=== PATIENT | male | born 1965 | race Hispanic/Latino ===

== ENCOUNTER 2022-05-03 21:20 | Inpatient (IN) | payer MEDICAID, MEDICARE, OTHER ==
[~2022-05-03] VITALS: Ht 182.9 cm; Wt 120.0 kg
[2022-05-03 21:51] LABS: BASOPHILS % (AUTO) 1.6 % (0.0-5.0); EOSINOPHILS % (AUTO) 5.3 % (0.0-8.0); HEMATOCRIT 30.2 % (42-54); LYMPHOCYTES % (AUTO) 16.1 % (21.0-51.0); MEAN CORPUSCULAR HEMOGLOBIN 33.6 pg (27.0-33.0); MEAN CORPUSCULAR HGB CONC 32.8 g/dL (32.0-36.0); MEAN CORPUSCULAR VOLUME 102.4 fL (79-99); MONOCYTES % (AUTO) 10.6 % (3.0-13.0); NEUTROPHILS % (AUTO) 66.1 % (40.0-77.0); PLATELET COUNT (AUTO) 164 K/uL (130-400); RED BLOOD CELL COUNT(AUTO) 2.95 MIL/uL (4.50-6.20); RED CELL DISTRIBUTION WIDTH 15.6 % (11.0-15.5); WHITE BLOOD COUNT (AUTO) 6.8 K/uL (4.8-10.8)
[2022-05-03 22:07] LABS: ALBUMIN 2.9 g/dL (3.5-5.0); POTASSIUM 5.5 mmol/L (3.5-5.1); TOTAL PROTEIN, SERUM 8.4 g/dL (6.0-8.3)
[2022-05-03 22:13] LABS: B-TYPE NATRIURETIC PEPTIDE > 5000 pg/mL (0-100)
[2022-05-03 22:14] LABS: CREATININE 13.7 mg/dL (0.5-1.5)
[2022-05-03] MEDS ORDERED: LACTULOSE 20 GM/30 ML UDCUP PO PRN (23:30)
[2022-05-03] MEDS ORDERED: GUAIFENESIN-DM 200/20 MG 10 ML PO PRN (23:30)
[2022-05-03] MEDS ORDERED: MAG/ALUM/SIMETH 30 ML UDCUP PO PRN (23:30)
[2022-05-03] MEDS ORDERED: NITROGLYCERIN 0.4 MG SL TAB SL PRN (23:30)
[2022-05-03] MEDS ORDERED: ONDANSETRON 4MG INJ IV PRN (23:30)
[2022-05-03] MEDS ORDERED: HYDRALAZINE 20MG/ML VIAL IV PRN (23:30)
[2022-05-03] MEDS ORDERED: MORPHINE 4 MG SYG IV PRN (23:30)
[2022-05-03] MEDS ORDERED: DiphenhydrAMINE HCL 50 MG/ML VIAL IV PRN (23:30)
[2022-05-03] MEDS ORDERED: ACETAMINOPHEN 325 MG TAB PO PRN (23:30)
[2022-05-03 23:48] LABS: INR 1.15 (0.85-1.15); PROTHROMBIN TIME 12.4 SEC (9.6-11.6)
[2022-05-04] VITALS (17 sets, daily range): BP systolic 128–169; BP diastolic 69–90
[2022-05-04] MEDS: FUROSEMIDE 40MG VIAL IV SCH ×3 (00:04→22:05)
[2022-05-04] MEDS ORDERED: NA ZIRCON CYCLOSIL(LOKELMA 10GM) PO ONE (00:30)
[2022-05-04] MEDS: ALBUTEROL 0.083% 2.5 MG/3 ML INH IH PRN ×5 (00:42→23:39)
[2022-05-04] MEDS: DIPHENHYDRAMINE HCL 25 MG CAPSULE PO PRN ×2 (04:53→19:22)
[2022-05-04 05:59] LABS: HEMATOCRIT 29.1 % (42-54); MEAN CORPUSCULAR HEMOGLOBIN 33.8 pg (27.0-33.0); MEAN CORPUSCULAR HGB CONC 33.7 g/dL (32.0-36.0); MEAN CORPUSCULAR VOLUME 100.3 fL (79-99); RED BLOOD CELL COUNT(AUTO) 2.9 MIL/uL (4.50-6.20); RED CELL DISTRIBUTION WIDTH 15.5 % (11.0-15.5); WHITE BLOOD COUNT (AUTO) 7.9 K/uL (4.8-10.8)
[2022-05-04 06:10] LABS: POTASSIUM 5.4 mmol/L (3.5-5.1)
[2022-05-04] MEDS: HYDROCODONE/ACETAMINOPHEN 5/325 MG TAB PO PRN (06:40)
[2022-05-04] MEDS: FAMOTIDINE 20MG VIAL IV SCH ×2 (08:21→19:22)
[2022-05-04] MEDS: LIDOCAINE 2%-EPI 1:200,000 20 ML VIAL IJ SCH (10:30)
[2022-05-04] MEDS: ACETAMINOPHEN 325 MG TAB PO PRN (19:25)
[2022-05-04 20:27] LABS: HEPATITIS B SURFACE ANTIGEN Non-Reactive (Nonreactive)
[2022-05-04] MEDS ORDERED: TRAZODONE HCL 50 MG TAB PO SCH (22:00)
[2022-05-05] VITALS (27 sets, daily range): BP systolic 130–172; BP diastolic 63–103
[2022-05-05 04:11] LABS: BASOPHILS % (AUTO) 1.3 % (0.0-5.0); EOSINOPHILS % (AUTO) 5.5 % (0.0-8.0); HEMATOCRIT 29.7 % (42-54); LYMPHOCYTES % (AUTO) 17.6 % (21.0-51.0); MEAN CORPUSCULAR HEMOGLOBIN 33.1 pg (27.0-33.0); MEAN CORPUSCULAR VOLUME 100.3 fL (79-99); MONOCYTES % (AUTO) 11.9 % (3.0-13.0); NEUTROPHILS % (AUTO) 63.4 % (40.0-77.0); PLATELET COUNT (AUTO) 142 K/uL (130-400); RED BLOOD CELL COUNT(AUTO) 2.96 MIL/uL (4.50-6.20); RED CELL DISTRIBUTION WIDTH 15.4 % (11.0-15.5)
[2022-05-05 04:27] LABS: PHOSPHORUS 6.8 mg/dL (2.5-4.9); POTASSIUM 4.8 mmol/L (3.5-5.1)
[2022-05-05 04:55] LABS: CREATININE 11.6 mg/dL (0.5-1.5)
[2022-05-05] MEDS: LIDOCAINE 2%-EPI 1:200,000 20 ML VIAL IJ SCH (09:59)
[2022-05-05] MEDS: FAMOTIDINE 20MG VIAL IV SCH ×2 (09:59→20:47)
[2022-05-05] MEDS ORDERED: CETIRIZINE HCL 5 MG TABLET PO SCH (12:00)
[2022-05-05] MEDS: FUROSEMIDE 40MG VIAL IV SCH (12:03)
[2022-05-05] MEDS: HYDROCODONE/ACETAMINOPHEN 5/325 MG TAB PO PRN (13:08)
[2022-05-05] MEDS ORDERED: FURO40TA7 PO (13:11)
[2022-05-05] MEDS: DIPHENHYDRAMINE HCL 25 MG CAPSULE PO PRN (13:50)
[2022-05-05] MEDS: ACETAMINOPHEN 325 MG TAB PO PRN (13:51)
[2022-05-05 14:22] LABS: APPEARANCE BODY FLUID TURBID (CLEAR); BODY FLUID WBC 240 /cu. mm.; COLOR,BODY FLUID RED (LT YELLOW); SPECIMENTYPE,BODY FLUID PLEURAL; TOTAL VOLUME,BODY FLUID 700 mL
[2022-05-05 14:23] LABS: BODY FLUID RBC 16300 /cu. mm.
[2022-05-05 14:29] LABS: BF EOSINOPHIL 2 %; BF LYMPHOCYTE 4 %; BF MESOTHELIAL 93 %
[2022-05-05] MEDS ORDERED: EPOETIN ALFA-EPBX (NON-ESRD) 10,000 UNIT/ML VIAL SQ SCH (21:00)
[2022-05-06] VITALS (7 sets, daily range): BP systolic 149–172; BP diastolic 71–96
[2022-05-06] MEDS: FUROSEMIDE 40MG VIAL IV SCH ×3 (00:23→23:53)
[2022-05-06] MEDS ORDERED: LISINOPRIL 20 MG TABLET PO SCH (09:00)
[2022-05-06] MEDS: FAMOTIDINE 20MG VIAL IV SCH ×2 (10:05→19:58)
[2022-05-06] MEDS: CETIRIZINE HCL 5 MG TABLET PO SCH (10:06)
[2022-05-06] MEDS: SEVELAMER HCL 800 MG TABLET PO SCH (12:12)
[2022-05-06] MEDS: HYDROCODONE/ACETAMINOPHEN 5/325 MG TAB PO PRN (14:10)
[2022-05-06] MEDS: ACETAMINOPHEN 325 MG TAB PO PRN (14:11)
[2022-05-07] VITALS (17 sets, daily range): BP systolic 159–186; BP diastolic 82–98
[2022-05-07] MEDS: CETIRIZINE HCL 5 MG TABLET PO SCH (09:18)
[2022-05-07] MEDS: SEVELAMER HCL 800 MG TABLET PO SCH ×2 (09:18→12:55)
[2022-05-07] MEDS: FAMOTIDINE 20MG VIAL IV SCH (09:19)
[2022-05-07] MEDS: FUROSEMIDE 40MG VIAL IV SCH (12:56)
== END 2022-05-07 15:00 | disposition left against medical advice (07) | DRG 291 ==
LOC: EDBD 21:20 → EDH 21:20 → UNDOADMIN 21:21 → EDHIP 21:21 → 4CH 05-04 02:00 → EDHIP 05-04 02:00
PROVIDERS: ADMIT Hospitalist; ATTEND Hospitalist
PROC: 5A1D70Z Performance of Urinary Filtration, Intermittent, Less than 6 Hours Per Day (ICD-10-PCS; 2022-05-04)
PROC: 0W9B3ZZ Drainage of Left Pleural Cavity, Percutaneous Approach (ICD-10-PCS; principal; 2022-05-05)
PROC: 5A1D70Z Performance of Urinary Filtration, Intermittent, Less than 6 Hours Per Day (ICD-10-PCS; 2022-05-05)
PROC: 5A1D70Z Performance of Urinary Filtration, Intermittent, Less than 6 Hours Per Day (ICD-10-PCS; 2022-05-07)
DX: I13.2 Hypertensive heart and chronic kidney disease with heart failure and with stage 5 chronic kidney disease, or end stage renal disease (principal); I50.33 Acute on chronic diastolic (congestive) heart failure; N18.6 End stage renal disease; J96.01 Acute respiratory failure with hypoxia; J91.8 Pleural effusion in other conditions classified elsewhere; D64.9 Anemia, unspecified; E11.22 Type 2 diabetes mellitus with diabetic chronic kidney disease; E66.9 Obesity, unspecified; E78.00 Pure hypercholesterolemia, unspecified; E87.5 Hyperkalemia; Z20.822 Contact with and (suspected) exposure to COVID-19; Z68.35 Body mass index [BMI] 35.0-35.9, adult; Z91.19 Patient's noncompliance with other medical treatment and regimen; Z99.2 Dependence on renal dialysis; Z87.820 Personal history of traumatic brain injury
CPT/HCPCS: 32555; 36415; 71045; 71250; 80048; 80053; 83880; 84100; 84484; 85025; 85027; 85610; 86704; 86706; 87071; 87205; 87340; 87635; 87804; 89051; 90935; 93005; 93306; 93356; 94640; 94664; 94760; 99291; C1729; C9803; G0378; J0360; J1940; J3490; Q0163

== ENCOUNTER 2022-12-26 05:25 | Inpatient (IN) | payer MEDICARE, OTHER ==
[~2022-12-26] VITALS: Ht 182.9 cm; Wt 90.7 kg
[2022-12-26] VITALS (34 sets, daily range): BP systolic 101–148; BP diastolic 46–84
[~2022-12-26 05:25] MED LIST: ATROPINE 1MG SYG IVP ONE; CACL 1GM SYG IVP ONE; ETOMIDATE 20MG VIAL IVP ONE; FURO40TA7 PO; SUCCINYLCHOLINE CHLORIDE 20 MG/ML 10 ML VIAL IVP ONE
[2022-12-26] MEDS ORDERED: ASPIRIN 81MG CHEW TAB ONE (06:06)
[2022-12-26 06:29] LABS: BASOPHILS % (AUTO) 0.2 % (0.0-5.0); HEMATOCRIT 37.1 % (42-54); LYMPHOCYTES % (AUTO) 7.5 % (21.0-51.0); MEAN CORPUSCULAR HEMOGLOBIN 31.3 pg (27.0-33.0); MEAN CORPUSCULAR HGB CONC 30.5 g/dL (32.0-36.0); MEAN CORPUSCULAR VOLUME 102.8 fL (79-99); MONOCYTES % (AUTO) 7.7 % (3.0-13.0); NEUTROPHILS % (AUTO) 83.9 % (40.0-77.0); NUCLEATED RED BLOOD CELLS 0.6 % (0.0-0.19); PLATELET COUNT (AUTO) 222 K/uL (130-400); RED BLOOD CELL COUNT(AUTO) 3.61 MIL/uL (4.50-6.20); RED CELL DISTRIBUTION WIDTH 17.2 % (11.0-15.5)
[2022-12-26] MEDS ORDERED: ASPIRIN 81MG CHEW TAB PO ONE (06:30)
[2022-12-26] MEDS ORDERED: VANCOMYCIN 1G/250ML KIT 250 ML IV ONE (06:33)
[2022-12-26] MEDS ORDERED: ZOSYN 3.375GM+NS 50ML 50 ML IVPB ONE (06:33)
[2022-12-26 06:34] LABS: INR 2.15 (0.85-1.15); PROTHROMBIN TIME 22.4 SEC (9.6-11.6)
[2022-12-26 06:35] LABS: PARTIAL THROMBOPLASTIN TIME 41.7 SEC (26.3-35.5)
[2022-12-26] MEDS ORDERED: IPRATROPIUM/ALBUTEROL SULFATE 3 ML SOLUTION IH ONE (07:00)
[2022-12-26] MEDS ORDERED: ZOSYN 3.375GM +NS 50ML IVPB ONE (07:00)
[2022-12-26] MEDS ORDERED: ONDANSETRON 4MG INJ IV PRN (07:00)
[2022-12-26] MEDS ORDERED: LACTULOSE 20 GM/30 ML UDCUP PO PRN (07:00)
[2022-12-26] MEDS ORDERED: LINEZOLID 600 MG/ISO-OSM 300 ML IV SCH ×2 (07:00→15:00)
[2022-12-26] MEDS ORDERED: ACETAMINOPHEN 325 MG TAB PO PRN ×2 (07:00)
[2022-12-26] MEDS ORDERED: VANCOMYCIN 1G VIAL IVPB ONE (07:00)
[2022-12-26] MEDS ORDERED: MAG/ALUM/SIMETH 30 ML UDCUP PO PRN (07:00)
[2022-12-26 07:15] LABS: ALBUMIN 3.2 g/dL (3.5-5.0); CREATININE 7.5 mg/dL (0.5-1.5); POTASSIUM 5.8 mmol/L (3.5-5.1); TOTAL PROTEIN, SERUM 8.9 g/dL (6.0-8.3)
[2022-12-26] MEDS ORDERED: DEXTROSE 50%-WATER 50 ML DISP.SYRIN IV ONE (07:26)
[2022-12-26 07:39] LABS: B-TYPE NATRIURETIC PEPTIDE 799 pg/mL (0-100)
[2022-12-26] MEDS ORDERED: FAMOTIDINE 20MG TAB PO SCH (09:00)
[2022-12-26] MEDS ORDERED: GLUCAGON 1MG KIT 1 MG ML IM PRN (11:00)
[2022-12-26] MEDS ORDERED: DEXTROSE 50%-WATER 50 ML DISP.SYRIN IV PRN (11:00)
[2022-12-26 11:26] LABS: ABG BASE EXCESS -7.9 mmol/L (-2.0-3.0); ABG HCO3 19.3 mmol/L (21.0-28.0); ABG OXYGEN SATURATION 99.5 % (95.0-99.0); ABG PCO2 47 mmHg (35-48)
[2022-12-26] MEDS: INSULIN HUMULIN R 100 UNIT/ML 3ML SQ SCH ×3 (11:30→21:00)
[2022-12-26] MEDS ORDERED: NOREPINEPHRIN 4MG/NS 250ML 250 ML IV ONE (11:51)
[2022-12-26] MEDS ORDERED: NOREPINEPHRIN 4MG/NS 250ML 250 ML IV SCH (12:41)
[2022-12-26] MEDS: HEPARIN 5,000 UNIT VIAL SQ SCH ×2 (12:41→18:37)
[2022-12-26] MEDS: MIDODRINE HCL 5 MG TABLET PO SCH ×2 (13:52→20:55)
[2022-12-26] MEDS: SODIUM BICARBONATE 650 MG TAB PO SCH ×2 (18:36→20:55)
[2022-12-26] MEDS: ALBUMIN (HUMAN) 25% 100 ML IV SCH ×2 (18:36→22:31)
[2022-12-26] MEDS ORDERED: ZOSYN 3.375GM+NS 50ML 50 ML IVPB SCH (21:00)
[2022-12-26] MEDS ORDERED: PANTOPRAZOLE 40 MG/VIAL IVP SCH (21:00)
[2022-12-26 21:58] LABS: ABG BASE EXCESS -5.7 mmol/L (-2.0-3.0); ABG HCO3 21.3 mmol/L (21.0-28.0); ABG OXYGEN SATURATION 99.7 % (95.0-99.0); ABG PCO2 48 mmHg (35-48)
[2022-12-26 22:05] LABS: BASOPHILS % (AUTO) 0.1 % (0.0-5.0); EOSINOPHILS % (AUTO) 0.1 % (0.0-8.0); LYMPHOCYTES % (AUTO) 5.5 % (21.0-51.0); MEAN CORPUSCULAR HEMOGLOBIN 30.8 pg (27.0-33.0); MEAN CORPUSCULAR HGB CONC 30.6 g/dL (32.0-36.0); MEAN CORPUSCULAR VOLUME 100.9 fL (79-99); NEUTROPHILS % (AUTO) 87.9 % (40.0-77.0); NUCLEATED RED BLOOD CELLS 1.9 % (0.0-0.19); PLATELET COUNT (AUTO) 253 K/uL (130-400); RED BLOOD CELL COUNT(AUTO) 3.47 MIL/uL (4.50-6.20); RED CELL DISTRIBUTION WIDTH 16.9 % (11.0-15.5); WHITE BLOOD COUNT (AUTO) 13.9 K/uL (4.8-10.8)
[2022-12-26 22:27] LABS: CREATININE 6.1 mg/dL (0.5-1.5); POTASSIUM 5.4 mmol/L (3.5-5.1)
[2022-12-26] MEDS ORDERED: SODIUM BICARB 50MEQ 50ML VIAL IV SCH (22:30)
[2022-12-26 22:36] LABS: ALBUMIN 3.8 g/dL (3.5-5.0); TOTAL PROTEIN, SERUM 9.6 g/dL (6.0-8.3)
[2022-12-26] MEDS ORDERED: FUROSEMIDE 40MG VIAL IV ONE (22:45)
[2022-12-26] MEDS ORDERED: ASPIRIN 300 MG SUPPOSITORY PR ONE (23:00)
[2022-12-26] MEDS ORDERED: DEXMEDETOMIDINE 400MCG/NS100ML IV ONE (23:18)
[2022-12-26] MEDS ORDERED: DEXMEDETOMIDINE 400MCG/NS100ML IV SCH (23:30)
[2022-12-27] VITALS: BP 165/116
[2022-12-27 00:03] VITALS: BP 108/42
[2022-12-27 00:05] VITALS: BP 111/62
[2022-12-27 04:50] LABS: HEPATITIS B SURFACE ANTIGEN Non-Reactive (Nonreactive)
== END 2022-12-27 00:08 | DRG 871 ==
LOC: EDH 05:25 → EDHIP 06:59 → 4BH 10:10 → 2CH 12:00
PROVIDERS: ADMIT Hospitalist; ATTEND Hospitalist
PROC: 5A1D70Z Performance of Urinary Filtration, Intermittent, Less than 6 Hours Per Day (ICD-10-PCS; principal; 2022-12-26)
DX: A41.9 Sepsis, unspecified organism (principal); G93.41 Metabolic encephalopathy; I50.33 Acute on chronic diastolic (congestive) heart failure; J18.9 Pneumonia, unspecified organism; R65.21 Severe sepsis with septic shock; N18.6 End stage renal disease; J96.01 Acute respiratory failure with hypoxia; I13.2 Hypertensive heart and chronic kidney disease with heart failure and with stage 5 chronic kidney disease, or end stage renal disease; I47.1 Supraventricular tachycardia; E87.20 Acidosis, unspecified; Z20.822 Contact with and (suspected) exposure to COVID-19; D53.9 Nutritional anemia, unspecified; E11.22 Type 2 diabetes mellitus with diabetic chronic kidney disease; E78.5 Hyperlipidemia, unspecified; E11.649 Type 2 diabetes mellitus with hypoglycemia without coma; E66.9 Obesity, unspecified; E87.5 Hyperkalemia; I46.9 Cardiac arrest, cause unspecified; Z83.3 Family history of diabetes mellitus; Z79.899 Other long term (current) drug therapy; Z91.119 Patient's noncompliance with dietary regimen due to unspecified reason; Z99.2 Dependence on renal dialysis; Z68.27 Body mass index [BMI] 27.0-27.9, adult
CPT/HCPCS: 31500; 36415; 36600; 71045; 76705; 80053; 82140; 82270; 82435; 82803; 82947; 82948; 83605; 83880; 84132; 84145; 84295; 84484; 85018; 85025; 85378; 85610; 85730; 86704; 86706; 86850; 86900; 86901; 87040; 87340; 87635; 87804; 90935; 92950; 93005; 94640; 99291; C9113; C9803; G0378; J0330; J0461; J1644; J1940; J2020; J2405; J2543; J3370; J3490; J7070; P9046